=== PATIENT | male | born 1990 | race Caucasian/White ===

== ENCOUNTER 2017-08-18 17:28 | Inpatient (IN) | payer OTHER ==
[~2017-08-18] VITALS: Ht 182.9 cm; Wt 102.1 kg
[2017-08-18] MEDS ORDERED: ONDANSETRON 4 MG/2 ML VIAL IM PRN (19:45)
[2017-08-18] MEDS ORDERED: MAGNESIUM HYDROXIDE 30 ML LIQUID UDC PO PRN (19:45)
[2017-08-18] MEDS ORDERED: diphenhydrAMINE 50 MG CAPSULE PO PRN (19:45)
[2017-08-18] MEDS ORDERED: MAG HYDROX/AL HYDROX/SIMETH 30 ML LIQUID UDC PO PRN (19:45)
[2017-08-18] MEDS ORDERED: LORAZEPAM 2 MG/1 ML VIAL IM PRN (19:45)
[2017-08-18] MEDS ORDERED: LORAZEPAM 1 MG TABLET PO PRN ×2 (19:45)
[2017-08-18] MEDS ORDERED: LOPERAMIDE HCL 2 MG CAPSULE PO PRN ×2 (19:45)
[2017-08-18] MEDS ORDERED: MIRALAX 17 GM POWD.PACK PO PRN (19:45)
[2017-08-18] MEDS ORDERED: CLONIDINE HCL 0.1 MG TABLET PO PRN (19:45)
[2017-08-18] MEDS ORDERED: ACETAMINOPHEN 325 MG TABLET PO PRN (19:45)
[2017-08-18] MEDS ORDERED: BUPRENORPHINE HCL 2 MG TAB.SUBL SL PRN (19:45)
[2017-08-18] MEDS ORDERED: IBUPROFEN 600 MG TABLET PO PRN (19:45)
[2017-08-18] MEDS ORDERED: ONDANSETRON ODT 4 MG TAB.RAPDIS SL PRN (19:45)
[2017-08-18] MEDS ORDERED: DICYCLOMINE HCL 20 MG TABLET PO PRN (19:45)
--- NOTE | 2017-08-18 19:45 | NUR ---
PRE-ADMISSION NOTE Patient is 27-year-old male, alert and orientedx4. Patient is coherent and able to respond to questions appropriately. Patient presents with slight flushing of the face and dilated pupils bilaterally. Patient is ambulatory with a steady gait. Admitting vitals are as follows: BP 121/75, HR 74, SPO2 96% on RA, temperature 97.7 F, RR 16, patient denies pain at this time. Patient denies allergies and reports following a vegetarian diet. Patients height reported at 6 0 and weight 225 lbs. Patient is stable, will be admitted to the 3rd floor; patient educated regarding unit policies and protocols, patient verbalized understanding. Will continue with assessment upon arrival to unit.
[2017-08-18] MEDS ORDERED: NICOTINE 14 MG/24HR PATCH TD PRN (20:00)
[2017-08-18] MEDS ORDERED: NICOTINE POLACRILEX 4 MG GUM-PK OF TEN BC PRN (20:00)
[2017-08-18 20:08] VITALS: BP 121/75
[2017-08-18 20:08] LABS: BASOPHILS % (AUTO) 0.4 % (0.0-2.0); EOSINOPHILS # (AUTO) 0.1 K/uL (0.0-0.7); EOSINOPHILS % (AUTO) 0.7 % (0.0-7.0); HEMATOCRIT 42.3 % (36.7-47.1); HEMOGLOBIN 14.4 g/dL (12.5-16.3); LYMPHOCYTES # (AUTO) 3.5 K/uL (20.0-40.0); LYMPHOCYTES % (AUTO) 39.7 % (20.5-51.5); MEAN CORPUSCULAR HEMOGLOBIN 27.5 uug (23.8-33.4); MEAN CORPUSCULAR HGB CONC 34 g/dL (32.5-36.3); MEAN CORPUSCULAR VOLUME 80.8 fL (73.0-96.2); MONOCYTES # (AUTO) 0.8 K/uL (2.0-10.0); MONOCYTES % (AUTO) 8.6 % (0.0-11.0); NEUTROPHILS # (AUTO) 4.5 K/uL (1.8-8.9); NEUTROPHILS % (AUTO) 50.6 % (38.5-71.5); PLATELET COUNT (AUTO) 225 K/uL (152-348); RED BLOOD CELL COUNT(AUTO) 5.24 MIL/uL (4.06-5.63); WHITE BLOOD COUNT (AUTO) 8.9 K/uL (3.6-10.2)
[2017-08-18 20:15] LABS: ALANINE AMINOTRANSFERASE 33 U/L (16-63); ALKALINE PHOSPHATASE 61 U/L (50-136); ASPARTATE AMINOTRANSFERASE 22 U/L (15-37); BILIRUBIN,TOTAL 0.3 mg/dL (0.2-1.0); CARBON DIOXIDE 31 mmol/L (21-32); CHLORIDE 105 mmol/L (98-107); CREATININE 1.2 mg/dL (0.6-1.3); ETHANOL < 3 MG/DL (0-0); GLUCOSE 116 mg/dL (74-106); MAGNESIUM 1.6 mg/dL (1.8-2.4); POTASSIUM 4.3 mmol/L (3.5-5.1); TOTAL PROTEIN, SERUM 8.2 g/dL (6.4-8.2); UREA NITROGEN, BLOOD 8 mg/dL (7-18)
--- NOTE | 2017-08-18 20:20 | NUR ---
ADMISSION NOTE Patient is a 27-year-old male admitted on 08/18/17 for Heroin and Cocaine dependence, as well as alcohol and fentanyl. Patient has NKA and denies history of seizures. Patient follows a vegetarian diet. Upon admission, patient has a CIWA score of 7 and COWS score of 5. Patients vital signs as follows: BP 121/75, HR 74, SPO2 96% on RA, temperature 97.7 F, RR 16, patient denies pain at this time. Patient reports he cannot recall specific details of previous treatments at this time, only verbalizing that he has been in treatment 4 times. Height reported at 6 0 and weight 225 lbs. Patient reports he does not have PCP, smokes 0.5-1 pack daily, and denies being hospitalized in the last 30 days. Substance Abuse History: 1. Heroin 0.5gram daily, last intake of 0.5gram on 08/18/17. At this rate for 4 years. 2. Alcohol 750mL every other day, last intake of 750mL whiskey on 08/18/17. 3. Cocaine 0.5gram monthly, last intake of 0.5gram on 08/12/17. At this rate for 8 years. 4. Fentanyl 0.5gram daily, last known intake of 0.5gram January 2017. At this rate for 1 year. 5. Marijuana 1 joint every other month, last intake of 1 joint July 2017. At this rate for unknown period of years. Patients longest sobriety period for 18 months when he was [id number]. Patient reports he has been in treatment four times but cannot recall specific dates/locations at this time. Patient reports that his brother from Heroin overdose this morning. Patient reports that an aunt on his mothers side also has heroin dependence. PMHx: Anxiety, depression, Bipolar, Hepatitis C, occasional tinnitus, history of UTI, and fractures of left pinky, left middle finger, and left hand. Patient did not bring any home meds, but reports taking Wellbutrin, Abilify, and gabapentin. Medications reconciled. Upon assessment, patients skin is WNL and intact. Patient is mildly intoxicated, presents with mild anxiety, skin is slightly flushed. Patients respirations are even and unlabored. Patient denies SOB and chest pain, reports mild nausea but denies vomiting and/or diarrhea. Patients bowel sounds active x4 quadrants, abdomen soft, no redness or distention noted. Patient denies SI/HI. Educational information provided and left at bedside. Patient is on fall precautions, safety measures in place, bed in low position, side rails up x2, call light within reach. Will continue to monitor.
[2017-08-18] MEDS ORDERED: LORAZEPAM 1 MG TABLET PO ONE (21:00)
[2017-08-18] MEDS ORDERED: MAGNESIUM OXIDE 400 MG TABLET PO ONE (21:00)
[2017-08-18] MEDS: GABAPENTIN 400 MG CAPSULE PO SCH (22:31)
[2017-08-18] MEDS ORDERED: MAGNESIUM OXIDE 400 MG TABLET ONE (22:38)
[2017-08-18] MEDS ORDERED: LORAZEPAM 1 MG TABLET ONE (22:57)
[2017-08-18 23:50] LABS: *AMPHETAMINE, URINE NEGATIVE (NEGATIVE); *BARBITURATE, URINE NEGATIVE (NEGATIVE); *CANNABINOID, URINE POSITIVE (NEGATIVE); *COCCAINE, URINE NEGATIVE (NEGATIVE); *OPIATE, URINE POSITIVE (NEGATIVE); *PHENCYCLIDINE SCREEN,URINE NEGATIVE (NEGATIVE)
[2017-08-19] VITALS: BP 88/40
--- NOTE | 2017-08-19 | NUR ---
COWS AND CIWA DEFERRED Midnight COWS and CIWA deferred due to patient being asleep; to be assessed when patient is awake per protocol. Patient's respirations are even and unlabored, no signs of distress noted at this time. Bed in low position, side rails up x2, call light within reach. Will continue to monitor.
[2017-08-19] MEDS ORDERED: BUPR300T52 PO (00:14)
[2017-08-19] MEDS ORDERED: ARIP15TA3 PO (00:14)
[2017-08-19] MEDS ORDERED: GABA800T2 PO (00:14)
--- NOTE | 2017-08-19 04:00 | NUR ---
COWS AND CIWA DEFERRED COWS and CIWA deferred due to patient being asleep; to assess when patient is awake per protocol. Patient's respirations are even and unlabored, no distress noted at this time. Bed in low position, side rails up x2, call light within reach. Will continue to monitor.
[2017-08-19 04:04] VITALS: BP 82/49
--- NOTE | 2017-08-19 07:22 | NUR ---
END OF SHIFT Patient is a 27-year-old male admitted on 08/18/17 for Heroin and Cocaine dependence, as well as alcohol and fentanyl. Patient is FULL code, has NKA and denies history of seizures. Patient follows a vegetarian diet. Last CIWA score of 7 and COWS score of 5. No taper has been ordered yet. Patient slept total of 7.5 hours, intake of 1300mL, voided x1, stool x0. No PRNs were given. Patient is on fall precaution, safety measures in place. Bed in low position, side rails up x2, call light within reach. Will endorse to day shift.
--- NOTE | 2017-08-19 07:23 | NUR ---
Start of Shift notes: Received patient in his room. Alert and verbally responsive. Oriented x 4. Able to make her needs known. Respirations even and unlabored. No SOB noted. Skin warm and dry to touch. Abdomen soft and non-distended. BS (+) in all 4 quadrants. No complains of N/V/D or constipation noted. Bladder non-distended. Voids independently. Ambulatory ad theo with steady gait. Patient is a 27 year old male admitted for opiate/BZO and cocaine dependence who was placed on PRNs at this time. Has past medical hx of anxiety, depression, bipolar disorder, Hep C, history of UTI, occasional tinnitus, hx of left pinky fracture, left middle finger fracture and left hand fracture. On fall and seizure precautions. FULL CODE. Regular diet. On fall and seizure precautions. Educated patient on his current plan of care for the day and his medication regimen. Encouraged oral fluid intake and encouraged group participation to learn new skills to prevent relapse. Will continue to monitor.
[2017-08-19 08:00] VITALS: BP 122/50
[2017-08-19] MEDS ORDERED: TUBERCULIN,PURIF.PROT.DERIV. 5 TU/0.1 ML TEST ID ONE (09:00)
[2017-08-19] MEDS: GABAPENTIN 400 MG CAPSULE PO SCH ×3 (09:18→20:39)
[2017-08-19] MEDS: MULTIVITAMINS,THERAPEUTIC TABLET PO SCH (09:18)
[2017-08-19] MEDS: METHOCARBAMOL 750 MG TABLET PO PRN (09:18)
--- NOTE | 2017-08-19 09:18 | NUR ---
Ativan 1 mg/Subutex 4mg SL/Robaxin 750 mg PO given: COWS 12/CIWA 9, patient presented with anxiety, yawning, irritable, restless legs, chills, hot flashes, myalgia, pupil dilation, gross tremors, facial flushing and sweats. Verbalizes 6/10 generalized pain. Medicated patient with Ativan 1 mg for CIWA 9, Subutex 4mg SL for COWS 12, and Robaxin 750 mg PO for 04/17. Will monitor for effectiveness.
--- NOTE | 2017-08-19 09:48 | NUR ---
Re-assessment: Per patient, PRN Subutex was effective in reducing opiate withdrawal symptoms. COWS 8. Less chills, hot flashes, pupils normal, and less restlessness noted.
[2017-08-19] MEDS ORDERED: ARIPIPRAZOLE 2 MG TABLET PO SCH (10:00)
--- NOTE | 2017-08-19 10:18 | NUR ---
Re-assessment: Ativan/Robaxin CIWA 5. Per patient, PRN Ativan and Robaxin has been effective in reducing anxiety, sweats, agitation and myalgia. PL 2.
[2017-08-19 12:00] VITALS: BP 129/91
[2017-08-19] MEDS: buPROPion XL 150 MG TAB.SR.24H PO SCH (12:03)
[2017-08-19] MEDS: ARIPIPRAZOLE 10 MG TABLET PO SCH (12:04)
--- NOTE | 2017-08-19 12:05 | NUR ---
Late med administration: Abilify and Wellbutrin administered late at this time. Med given late per patient's request. Patient was in group when med was available. Notified MD. Per mj CASTANEDA to give at this time.
[2017-08-19] MEDS: BUPRENORPHINE HCL 2 MG TAB.SUBL SL SCH ×3 (12:58→20:39)
[2017-08-19] MEDS: LORAZEPAM 1 MG TABLET PO SCH ×2 (12:58→20:39)
--- NOTE | 2017-08-19 13:00 | NUR ---
5-day Subutex and 5-day Ativan taper initiated: Patient placed on 5-day Subutex and 5-day Ativan. Taper initiated at this time.
--- NOTE | 2017-08-19 13:53 | NUR ---
Therapist met with client in the morning and welcomed him to treatment. Therapist explained the different types of groups to client and encouraged him to attend as soon as he felt ready.
[2017-08-19 16:00] VITALS: BP 131/81
--- NOTE | 2017-08-19 19:02 | NUR ---
End of Shift Notes: Patient's 5-day Ativan and 5-day Subutex taper initiated today at 1300. No adverse reactions noted. Tolerating well. VS monitored closely. No significant abnormalities noted. Withdrawal symptoms were closely monitored. Patient's initial COWS 12/CIWA 9, patient presented with anxiety, agitation, restless legs, chills, hot flashes, sweating myalgia, pupil dilation, and gross tremors. Medicated patient with Robaxin/Ativan 1 mg and Subutex 4 mg SL at 0918 with help. Last COWS /CIWA 3. Per patient, Ativan and Subutex has been effective in reducing patient's withdrawal symptoms. Attempts to participate in group and activities despite his withdrawal symptoms. Noted with episodes of depressed behavior due to loss of his brother. Therapist/Psych MD aware and started patient on Abilify and Wellbutrin. Support and therapeutic communication provided. Compliant with care and treatment. All needs met and attended. Will continue to monitor closely.
--- NOTE | 2017-08-19 19:10 | NUR ---
Start of Shift Patient Received. Patient is in his room sleeping but easily aroused to verbal stimuli. Breathing even and non-labored. Patient is a 27 year old female admitted on 08/18/17 for Opiate and ETOH Dependence under the care of Dr. Hernandez. Patient is currently receiving a 5 day Ativan and 5 day Subutex taper. Patient verbalizes no known allergies, wishes to be full code, following a regular diet, placed on fall precautions, and skin noted intact. Per endorsement, patient is tolerating taper medication well. Last noted COWS 6 and CIWA 3. Patient Attempted to participate in group meetings and activities despite his withdrawal symptoms. He was noted with episodes of depressed behavior due to loss of his brother. Therapists and MDs aware and started. Support and therapeutic communication provided. Patient is compliant with care and treatment. All needs met and attended. Will continue plan of care as ordered.
[2017-08-19 20:34] VITALS: BP 113/62
[2017-08-20 00:18] VITALS: BP 99/51
[2017-08-20 04:36] VITALS: BP 97/52
[2017-08-20 06:06] LABS: HEPATITIS B SURFACE AG Negative (Negative)
--- NOTE | 2017-08-20 07:10 | NUR ---
End of Shift Patient is in bed sleeping. Breathing even and non labored. Patient is a 27 year old male admitted on 08/18/17 for Opiate and ETOH Dependence under the care of Dr. Hernandez. Patient is currently receiving a 5 day Ativan and 5 day Subutex taper. No known allergies, Full Code, Vegetarian Diet, placed on fall precautions, and skin noted intact. Patient is tolerating taper medication well. Last noted COWS 10 and CIWA 5. Patient was noted with episodes of depressed behavior due to loss of his brother. Support and therapeutic communication provided. Patient is compliant with care and treatment. All needs met and attended. Will endorse to continue plan of care as ordered.
--- NOTE | 2017-08-20 07:11 | NUR ---
Start of Shift notes: Received patient in his room. Alert and verbally responsive. Oriented x 4. Able to make her needs known. Respirations even and unlabored. No SOB noted. Skin warm and dry to touch. Abdomen soft and non-distended. BS (+) in all 4 quadrants. No complains of N/V/D or constipation noted. Bladder non-distended. Voids independently. Ambulatory ad theo with steady gait. Patient is a 27 year old male admitted for opiate/BZO and cocaine dependence who was placed on 5-day Subutex and 5-day Ativan taper as ordered. Tolerating taper well. No adverse reactions noted. Prior to admission, patient was using 0.5grams of Heroin, 750cc of ETOH, 0.5grams of cocaine, 0.5grams of fentanyl, and 1 joint of marijuana daily. Has past medical hx of anxiety, depression, bipolar disorder, Hep C, history of UTI, occasional tinnitus, hx of left pinky fracture, left middle finger fracture and left hand fracture. On fall and seizure precautions. FULL CODE. Regular diet. On fall and seizure precautions. Educated patient on his current plan of care for the day and his medication regimen. Encouraged oral fluid intake and encouraged group participation to learn new skills to prevent relapse. Will continue to monitor.
[2017-08-20 08:00] VITALS: BP 113/66
[2017-08-20] MEDS ORDERED: BUPRENORPHINE HCL 2 MG TAB.SUBL SL SCH (09:00)
[2017-08-20] MEDS: GABAPENTIN 400 MG CAPSULE PO SCH ×3 (09:05→20:52)
[2017-08-20] MEDS: LORAZEPAM 1 MG TABLET PO SCH ×4 (09:05→20:52)
[2017-08-20] MEDS: METHOCARBAMOL 750 MG TABLET PO PRN (09:05)
[2017-08-20] MEDS: MULTIVITAMINS,THERAPEUTIC TABLET PO SCH (09:05)
[2017-08-20] MEDS: buPROPion XL 150 MG TAB.SR.24H PO SCH (09:05)
[2017-08-20] MEDS: ARIPIPRAZOLE 10 MG TABLET PO SCH (09:05)
--- NOTE | 2017-08-20 09:05 | NUR ---
Robaxin 750 mg PO given: Patient noted with complain of 6/10 myalgia related to his withdrawal symptoms. Non-pharmacological interventions were provided but ineffective. Medicated patient with Robaxin 750 mg PO as ordered. Will monitor for effectiveness.
--- NOTE | 2017-08-20 09:52 | NUR ---
MD Communication: Reported to Dr. Hernandez that patient's pulse 111 while at rest. Patient denies any complains of chest pain, discomfort, headache, lightheadedness. Per MD, he will come and see the patient and enter in orders.
--- NOTE | 2017-08-20 10:05 | NUR ---
Re-assessment: Robaxin Per patient, PRN Robaxin was highly effective in reducing myalgia. PL 11/17.
--- NOTE | 2017-08-20 10:10 | NUR ---
PMD and Psych MD Communication: Notified Dr. Rascon and Dr. Hernandez that patient is noted with episodes of sedation during the day. Per MD, continue to monitor the patient at this time.
[2017-08-20] MEDS ORDERED: TRAZODONE 50 MG TABLET PO PRN (10:45)
[2017-08-20 12:00] VITALS: BP 110/70
--- NOTE | 2017-08-20 12:10 | NUR ---
Change of Condition/MD Communication: Patient seen laying down in bed with eyes closed. Breathing even and unlabored. Easily arousable. Responsive to verbal and tactile stimuli. Noted with pulse 127, BP 110/70, Temp 100, PL 5/10 due to toothache, and O2 sat at 89-90% via RA. Crackles heard on RLL. Reports episodes of cough and mild congestion. HOB elevated. Immediately notified Dr. Hernandez with orders to administer O2 at 2L via NC and to titrate to keep O2 sat >95%, CXR and labs, and per MD, OK to give scheduled Ativan at this time. Orders noted and carried out.
--- NOTE | 2017-08-20 12:45 | NUR ---
MD Communication: Refusal of Tylenol or Motrin PRN Motrin and Tylenol were offered to the patient to help with his fever however patient refused. Patient states that both medications give him a stomach ache. Education was provided and encouraged patient to eat before taking meds but patient verbalizes "I'd rather not take anything." Dr. Hernandez made aware and to continue to monitor the patient. Cooling measures provided at this time. Encouraged patient to change into loose clothing to help with the fever. Patient complied. Will monitor closely.
[2017-08-20 13:14] LABS: BASOPHILS % (AUTO) 0.2 % (0.0-2.0); EOSINOPHILS % (AUTO) 0.3 % (0.0-7.0); HEMATOCRIT 43.5 % (36.7-47.1); HEMOGLOBIN 14.4 g/dL (12.5-16.3); LYMPHOCYTES # (AUTO) 4.4 K/uL (20.0-40.0); LYMPHOCYTES % (AUTO) 27.7 % (20.5-51.5); MEAN CORPUSCULAR HEMOGLOBIN 27.2 uug (23.8-33.4); MEAN CORPUSCULAR HGB CONC 33 g/dL (32.5-36.3); MEAN CORPUSCULAR VOLUME 81.8 fL (73.0-96.2); MONOCYTES # (AUTO) 1.4 K/uL (2.0-10.0); NEUTROPHILS # (AUTO) 9.9 K/uL (1.8-8.9); NEUTROPHILS % (AUTO) 62.8 % (38.5-71.5); PLATELET COUNT (AUTO) 190 K/uL (152-348); RED BLOOD CELL COUNT(AUTO) 5.31 MIL/uL (4.06-5.63)
[2017-08-20 13:17] LABS: WHITE BLOOD COUNT (AUTO) 15.8 K/uL (3.6-10.2)
--- NOTE | 2017-08-20 13:17 | NUR ---
Ativan 1 mg PO at 1300 not administered: Patient appears sedated. Arousable, but unable to maintain eye contact as he falls asleep. Verbally responsive to verbal and tactile stimuli. Ativan 1 mg PO at 1300 held at this time. Will continue to monitor.
[2017-08-20 13:18] LABS: CREATININE 1.1 mg/dL (0.6-1.3); POTASSIUM 4.5 mmol/L (3.5-5.1)
--- NOTE | 2017-08-20 13:28 | NUR ---
MD Communication: Labs Patient's WBC noted to be 15.8H. Informed MD Hernandez at this time.
--- NOTE | 2017-08-20 13:45 | NUR ---
Re-assessment: Temp Patient's temp rechecked. Temp 99.5 after 1 hour of applying cold packs. Oral fluids encouraged. Dr. Hernandez aware.
[2017-08-20] MEDS: PIPERACILLIN/TAZOBACTAM/D5W 3.375 G in PREMIXED 1 EACH IV SCH ×3 (14:30→22:00)
--- NOTE | 2017-08-20 15:00 | NUR ---
IV insertion: IV access obtained to patient's left hand by charge nurse. Attempted x 2 with good blood return. Flushed adequately per unit's protocol. IV site to left hand patent and intact. Tourniquet released. Education provided to the patient.
[2017-08-20] MEDS: BUPRENORPHINE HCL 2 MG TAB.SUBL SL SCH ×2 (15:53→20:52)
[2017-08-20] MEDS: IV NS 1000 ML 1,000 ML IV SCH ×2 (15:58→22:41)
[2017-08-20 16:00] VITALS: BP 110/77
[2017-08-20] MEDS: VANCOMYCIN IV 1,500 MG in IV DEXTROSE 5% 500 ML IV SCH (16:05)
--- NOTE | 2017-08-20 16:27 | NUR ---
Clinical Pharmacy Note: Vancomycin Pharmacy to Dose Subjective: To start vancomycin in this 27 yo male for indication of empiric Objective: height : 72 '' weight: 225 lb BUN 5 Scr 1.1 Wbc 15.8 temp 98.6 Assessment/Plan Will start vancomycin 1500mg IVPB Q9hrs for expected trough of 15 mcg/ml at steady state. 1st dose was due today at 1600. Will check trough before 4th scheduled dose (not yet ordered). Will monitor renal function and adjust the dose if needed. Will continue to follow
--- NOTE | 2017-08-20 17:29 | NUR ---
Ativan 1 mg PO at 1700 not administered: Patient appears sedated. Arousable, but unable to maintain eye contact as he falls asleep. Verbally responsive to verbal and tactile stimuli. Ativan 1 mg PO at 1700 held at this time. Notified MD. Will continue to monitor.
--- NOTE | 2017-08-20 19:07 | NUR ---
End of Shift Notes: Patient continues to be on 5- day Subutex and 5-day Ativan taper as ordered. No adverse reactions noted. VS monitored closely. Noted with elevated pulse and elevated body temp. Also noted with episodes of desaturation. MD Hernandez aware and orders in place. Initial COWS 11/CIWA 5, patient presented with chills, hot flashes, myalgia, anxiety, tremors and restlessness. Medicated patient with Robaxin at 0905 for myalgia with help after 1 hour. On O2 at 4L/min via NC due to episode of desaturation. Ativan 1 mg at 1300 and 1700 held due to sedation. MD gonsalves. Labs reviewed. Patient noted with WBC 15.8H. Cooling measures provided. IV site to left hand inserted but became infiltrated at 1800. IV removed and cold compress applied immediately. On IV ATB of Vancomycin and Zosyn as ordered for elevated WBC. Per patient, he might have pulled the IV accidentally. Last COWS 4/CIWA 3. Per patient Ativan and Subutex has been effective in relieving his withdrawal symptoms. All needs met and attended. Will continue to monitor.
--- NOTE | 2017-08-20 19:15 | NUR ---
START OF SHIFT Received 27 year old male patient admitted on 08/18/17 for ETOH, Heroin, Fentanyl, Cocaine and Marijuana dependency. Pt is full code with NKA. He follows a vegetarian diet. Pt reports a PMHx of anxiety, depression, bipolar, hepatitis C, history of UTI, and history of left pinky fracture, left middle finger fracture, and left hand fracture. Pt is placed on a 5 day Ativan and 5 day Subutex taper started on 08/19/17 and tolerating well. Per endorsement, with increased temperature of 101, and O2 sat of 85%. MD with orders for blood culture x2, CBC, BMP, sputum culture, GAS, influenza A/B, MRSA screen, and chest X-Ray. Pt currently receiving IV Zosyn and Vancomycin until pending labs are resulted. Pt's 1200 and 1700 dose of Ativan were held d/t sedation. Pt lying in bed with eyes closed but responds to nurses greeting. Pt is alert and oriented x4, breathing is even and unlabored. Safety measures in place. Will continue to monitor.
[2017-08-20 20:00] VITALS: BP 117/76
--- NOTE | 2017-08-20 20:00 | NUR ---
NON ADMINISTERED MEDICATION 1430 dose of Zosyn was non-administered d/t pt's IV was infiltrated.
--- NOTE | 2017-08-20 21:00 | NUR ---
IV INSERTION Pt's left hand IV was infiltrated. 22 gauge IV reinserted to pt's right hand. Pt tolerated well. No s/s of infiltration noted. Will continue to monitor.
[2017-08-21] VITALS (7 sets, daily range): BP systolic 105–130; BP diastolic 50–89
--- NOTE | 2017-08-21 | NUR ---
COWS/CIWA DEFERRED COWS and CIWA deferred d/t pt lying in bed with eyes closed noted to be asleep. Respirations 16, breathing is even and unlabored. Safety measures in place. Will monitor.
[2017-08-21] MEDS: VANCOMYCIN IV 1,500 MG in IV DEXTROSE 5% 500 ML IV SCH ×3 (01:50→19:00)
[2017-08-21] MEDS: IV NS 1000 ML 1,000 ML IV SCH ×3 (06:36→23:30)
[2017-08-21] MEDS: PIPERACILLIN/TAZOBACTAM/D5W 3.375 G in PREMIXED 1 EACH IV SCH ×3 (06:37→23:16)
--- NOTE | 2017-08-21 07:18 | NUR ---
END OF SHIFT Pt is a 27 year old male patient admitted on 08/18/17 for ETOH, Heroin, Fentanyl, Cocaine and Marijuana dependency. Pt is full code with NKA. He follows a vegetarian diet. Pt reports a PMHx of anxiety, depression, bipolar, hepatitis C, hisotry of UTI, and history of left pinky fracture, left middle finger fracture, and left hand fracture. Pt continues on a 5 day Ativan and 5 day Subutex taper started on 08/19/17 and tolerating well. Pt with 22 gauge IV on right hand, patent and flushing well. No s/s of infiltration. He is receiving fluids and IV Zosyn Q8hrs and Vancomycin Q9hrs. Pt is tolerating well. He did not receive or request PRN medications. Pt continues with 2L of O2 via NC to keep O2 sat above 95%. He did not present with increased temperature during shift. Last temp at 0400 was 98.5. Pt remains alert and oriented x4, productive cough noted, breathing even. Safety measures in place. Endorsed to oncoming shift.
--- NOTE | 2017-08-21 07:25 | NUR ---
Start of shift note SBAR report rcv'd. Pt was admitted for opiate, ETOH, cocine and marijuana abuse. Pt is a full code on a regular diet, and denies any allergies. Pt has a PMhx of anxiety, depression, bipolar d/o, hepatitis C, history of a UTI, tinnitus, and multiple fractures. Pt is IV antibiotics for an infection. Pt is on a 5 day subutex and 5 day ativan taper. IVF infusing without incident. Will continue to monitor pt. All needs addressed at this time.
[2017-08-21 08:16] LABS: CREATININE 1.2 mg/dL (0.6-1.3); MAGNESIUM 1.8 mg/dL (1.8-2.4); POTASSIUM 3.9 mmol/L (3.5-5.1)
[2017-08-21 08:19] LABS: BASOPHILS % (AUTO) 0.2 % (0.0-2.0); EOSINOPHILS # (AUTO) 0.1 K/uL (0.0-0.7); EOSINOPHILS % (AUTO) 0.7 % (0.0-7.0); HEMATOCRIT 38.5 % (40-50); HEMOGLOBIN 12.9 G/DL (14.0-18.0); LYMPHOCYTES # (AUTO) 2.9 K/UL (0.8-4.8); LYMPHOCYTES % (AUTO) 27.9 % (20.5-51.5); MEAN CORPUSCULAR HEMOGLOBIN 27.2 UUG (27.0-31.0); MEAN CORPUSCULAR HGB CONC 33 g/dL (32.0-37.0); MEAN CORPUSCULAR VOLUME 81.3 FL (82.0-92.0); MONOCYTES # (AUTO) 0.9 K/UL (0.1-1.30); MONOCYTES % (AUTO) 8.8 % (0.0-11.0); NEUTROPHILS # (AUTO) 6.5 K/UL (1.8-8.9); NEUTROPHILS % (AUTO) 62.4 % (38.5-71.5); PLATELET COUNT (AUTO) 197 K/UL (150-450); RED BLOOD CELL COUNT(AUTO) 4.74 MIL/UL (4.7-6.1)
[2017-08-21 08:21] LABS: WHITE BLOOD COUNT (AUTO) 10.4 K/UL (4.0-11.2)
[2017-08-21] MEDS: ARIPIPRAZOLE 10 MG TABLET PO SCH (09:10)
[2017-08-21] MEDS: BUPRENORPHINE HCL 2 MG TAB.SUBL SL SCH ×3 (09:10→20:34)
[2017-08-21] MEDS: buPROPion XL 150 MG TAB.SR.24H PO SCH (09:10)
[2017-08-21] MEDS: MULTIVITAMINS,THERAPEUTIC TABLET PO SCH (09:10)
[2017-08-21] MEDS: LORAZEPAM 1 MG TABLET PO SCH ×3 (09:10→20:34)
[2017-08-21] MEDS: GABAPENTIN 400 MG CAPSULE PO SCH (09:10)
--- NOTE | 2017-08-21 12:00 | NUR ---
COWS/CIWA deferred Pt is sleeping soundly. COWS/CIWA deferred.
[2017-08-21] MEDS ORDERED: IV NS 1000 ML 1,000 ML IV ONE (13:00)
[2017-08-21] MEDS: GABAPENTIN 300 MG CAPSULE PO SCH ×2 (14:20→20:33)
--- NOTE | 2017-08-21 14:58 | NUR ---
Clinical Pharmacy Note: Vancomycin Pharmacy to Dose Subjective: To continue vancomycin in this 27 yo male for indication of empiric Objective: height : 72 '' weight: 225 lb BUN 5 Scr 1.2 Wbc 10.4 temp 98.5 Assessment/Plan Will continue vancomycin 1500mg IVPB Q9hrs for expected trough of 15 mcg/ml at steady state. 3rd dose was today at 1000. Will check trough before 4th scheduled dose (due tonight at 1830). RNs endorsed to hold dose if trough >20. Will check level tomorrow and adjust as needed. Will monitor renal function and adjust the dose if needed. Will continue to follow
[2017-08-21] MEDS ORDERED: MAGNESIUM OXIDE 400 MG TABLET PO ONE (15:00)
--- NOTE | 2017-08-21 16:30 | NUR ---
MD communication Pt noted to have a HR of 131, Dr Hernandez notified, Dr Hernandez to place orders for EKG. Pt has no further complaints. Will continue to monitor pt.
--- NOTE | 2017-08-21 18:51 | NUR ---
End of shift note Pt was admitted for opiate, ETOH, cocaine and marijuana abuse. Pt has a PMhx of anxiety, depression, bipolar d/o, hepatitis C, history of a UTI, tinnitus, and multiple fractures . Pt is a full code on a regular diet, and denies any allergies. Pt is IV antibiotics for an infection, all culture results and microbiology results at this time are negative. Pt is on a 5 day subutex and 5 day ativan taper and tolerating well. Pt has a COWS of 8 and CIWA of 3 at 1600. Pt had an IV bolus of NS during the shift for his tachycardia. IVF fluids at 125ml/hr to R hand. Dr Hernandez ordered an EKG, pending results. Pt ambulated several times during the shift, pt states that he is comfortable at this time. Will endorse SBAR to oncoming nurse.
--- NOTE | 2017-08-21 19:15 | NUR ---
START OF SHIFT Received 27 year old male patient admitted on 08/18/17 for ETOH, Heroin, Fentanyl, Cocaine and Marijuana dependency. Pt is full code with NKA. He follows a vegetarian diet. Pt reports a PMHx of anxiety, depression, bipolar, hepatitis C, history of UTI, and history of left pinky fracture, left middle finger fracture, and left hand fracture. Pt is currently receiving a 5 day Ativan and 5 day Subutex taper started on 08/19/17 and tolerating well. Per endorsement, he did not receive or request PRN medications. He is scheduled to have EKG for increased HR. Pt's lab results for rapid influenza was negative, strep was negative, pending results for sputum culture and MRSA nares. Pt is alert and oriented x4, breathing is even and unlabored. Safety measures in place. Will continue to monitor.
[2017-08-21] MEDS: LACTOBACILLUS RHAMNOSUS GG 1 EACH CAPSULE PO SCH (20:33)
--- NOTE | 2017-08-21 23:00 | NUR ---
IV REINSERTION Pt's left hand IV gauge 22 noted to be dislodged. Pt complaining of pain at insertion site. 22 gauge IV was reinserted on left forearm. Pt tolerated well. No s/s of infiltration noted, patent and flushing well. Will monitor.
[2017-08-22] VITALS: BP 123/67
--- NOTE | 2017-08-22 | NUR ---
COWS/CIWA DEFERRED Pt lying in bed with eyes closed noted to be asleep. Respirations 16, breathing is even and unlabored. Safety measures in place. Will monitor.
[2017-08-22 04:00] VITALS: BP 93/51
--- NOTE | 2017-08-22 04:00 | NUR ---
COWS/CIWA DEFERRED Pt lying in bed with eyes closed noted to be asleep. Respirations 16, breathing is even and unlabored. Safety measures in place. Will monitor.
[2017-08-22] MEDS: VANCOMYCIN IV 1,500 MG in IV DEXTROSE 5% 500 ML IV SCH ×2 (04:04→15:43)
[2017-08-22] MEDS: IV NS 1000 ML 1,000 ML IV SCH ×3 (06:30→22:51)
--- NOTE | 2017-08-22 07:12 | NUR ---
END OF SHIFT Pt is a 27 year old male patient admitted on 08/18/17 for ETOH, Heroin, Fentanyl, Cocaine and Marijuana dependency. Pt is full code with NKA. He follows a vegetarian diet. Pt reports a PMHx of anxiety, depression, bipolar, hepatitis C, history of UTI, and history of left pinky fracture, left middle finger fracture, and left hand fracture. Pt is currently receiving a 5 day Ativan and 5 day Subutex taper started on 08/19/17 and tolerating well. He did not receive or request PRN medications. He received EKG at 2300. His IV was reinserted to left forearm 22 gauge, patent and flushing well. He remains of IV antibiotics of Zosyn and Vancomycin. He slept a total of 7hrs, Intake: 1146mL, Void: x2, BM:0, COWS: 9, CIWA:4. Pt remain s alert and oriented x4, breathing is even and unlabored. Safety measures in place. Endorsed to oncoming shift.
--- NOTE | 2017-08-22 07:25 | NUR ---
Start of shift note SBAR report rcv'd. Pt was admitted for opiate, ETOH, cocaine and marijuana abuse. Pt has a PMhx of anxiety, depression, bipolar d/o, hepatitis C, history of a UTI, tinnitus, and multiple fractures . Pt is a full code on a regular diet, and denies any allergies. Pt is IV antibiotics for an infection, all culture results and microbiology results at this time are negative, with some results still pending. Pt is on a 5 day subutex and 5 day ativan taper and tolerating well. Pt has IV zosyn infusing at this time to left forearm. Will continue to monitor pt. All needs addressed at this time. Pt is requesting to sleep at this time.
[2017-08-22] MEDS: PIPERACILLIN/TAZOBACTAM/D5W 3.375 G in PREMIXED 1 EACH IV SCH ×3 (07:29→21:32)
[2017-08-22 07:40] LABS: BASOPHILS % (AUTO) 0.4 % (0.0-2.0); EOSINOPHILS # (AUTO) 0.2 K/uL (0.0-0.7); HEMOGLOBIN 12.7 G/DL (14.0-18.0); LYMPHOCYTES # (AUTO) 3.4 K/UL (0.8-4.8); LYMPHOCYTES % (AUTO) 40.3 % (20.5-51.5); MEAN CORPUSCULAR HGB CONC 33 g/dL (32.0-37.0); MEAN CORPUSCULAR VOLUME 82.9 FL (82.0-92.0); MONOCYTES # (AUTO) 0.9 K/UL (0.1-1.30); MONOCYTES % (AUTO) 10.8 % (0.0-11.0); NEUTROPHILS # (AUTO) 3.9 K/UL (1.8-8.9); NEUTROPHILS % (AUTO) 46.5 % (38.5-71.5); PLATELET COUNT (AUTO) 174 K/UL (150-450); WHITE BLOOD COUNT (AUTO) 8.4 K/UL (4.0-11.2)
[2017-08-22 07:44] LABS: MAGNESIUM 2.2 mg/dL (1.8-2.4); POTASSIUM 3.6 mmol/L (3.5-5.1)
[2017-08-22 08:00] VITALS: BP 112/81
[2017-08-22] MEDS: GABAPENTIN 300 MG CAPSULE PO SCH ×4 (10:17→21:29)
[2017-08-22] MEDS: MULTIVITAMINS,THERAPEUTIC TABLET PO SCH (10:17)
[2017-08-22] MEDS: ARIPIPRAZOLE 10 MG TABLET PO SCH (10:17)
[2017-08-22] MEDS: BUPRENORPHINE HCL 2 MG TAB.SUBL SL SCH ×2 (10:17→21:39)
[2017-08-22] MEDS: LACTOBACILLUS RHAMNOSUS GG 1 EACH CAPSULE PO SCH ×2 (10:17→21:29)
[2017-08-22] MEDS: buPROPion XL 150 MG TAB.SR.24H PO SCH (10:17)
[2017-08-22] MEDS: LORAZEPAM 1 MG TABLET PO SCH ×2 (10:18→21:29)
[2017-08-22 12:00] VITALS: BP 142/85
[2017-08-22] MEDS ORDERED: IV NS 1000 ML 1,000 ML IV ONE (15:00)
--- NOTE | 2017-08-22 15:00 | NUR ---
Medication held Pt is sleeping soundly, gabapentin held.
--- NOTE | 2017-08-22 15:20 | NUR ---
Clinical Pharmacy Note: Vancomycin Pharmacy to Dose Subjective: To continue vancomycin in this 27 yo male for indication of empiric Objective: height : 72 '' weight: 225 lb BUN 6 Scr 1.0 Wbc 8.4 temp 98.0 Trough: 8.9 08/21 at 2030 Trough: 17.0 today at 1255 Assessment/Plan As yesterday's trough was taken late, rescheduled trough for today before 1300 dose. Based on trough and pt weight, may not be fully distributed/may be higher. Rescheduled for 1500 q10hrs for new expected trough 15.1. First dose today at 1500. Will order trough before 4th scheduled dose (not ordered yet). Will monitor renal function and dose per level if unstable. will follow
--- NOTE | 2017-08-22 15:44 | NUR ---
Vancomycin 500cc IVPB started via pump right forearm @ 250cc/hr.
[2017-08-22 16:00] VITALS: BP 122/67
[2017-08-22] MEDS: METHOCARBAMOL 750 MG TABLET PO PRN (16:51)
--- NOTE | 2017-08-22 16:54 | NUR ---
PRN Administration Pt c/o headache 06/17, muscle aches 05/17 and a nausea. Administered PRN tylenol, robaxin and zofran per MD order. Will continue to monitor pt.
--- NOTE | 2017-08-22 17:24 | NUR ---
Reassessment Pt states that his nausea has improved. Will continue to monitor pt.
--- NOTE | 2017-08-22 17:54 | NUR ---
Reassessment Pt states that his headache and body aches have improved to a pain level of 3/10. Will continue to monitor pt. All needs addressed at this time
--- NOTE | 2017-08-22 19:00 | NUR ---
End of shift note Pt was admitted for opiate, ETOH, cocaine and marijuana abuse. Pt has a PMhx of anxiety, depression, bipolar d/o, hepatitis C, history of a UTI, tinnitus, and multiple fractures . Pt is a full code on a regular diet, and denies any allergies. Pt is IV antibiotics for an infection, all culture results and microbiology results at this time are negative, with some results still pending and preliminary at this time. Pt is on a 5 day subutex and 5 day ativan taper and tolerating well. Pt has NS infusing at a bolus rate per Dr Hernandez. Pt is tolerating well. Pt had a vanco trough drawn and it is WNL. Pharmacy is dosing vanco. At 1654 pt woke up from his nap and stated that he had a headache, body aches and nausea. Pt given PRN medications with relief. Pt had a COWS of 9 and CIWA of 8 at 1600. Pt is currently ambulating around the unit, pt has no further complaints. Will endorse SBAR to oncoming nurse.
--- NOTE | 2017-08-22 19:15 | NUR ---
START OF SHIFT Received 27 year old male patient admitted on 08/18/17 for ETOH, Heroin, Fentanyl, Cocaine and Marijuana dependency. Pt is full code with NKA. He follows a vegetarian diet. Pt reports a PMHx of anxiety, depression, bipolar, hepatitis C, history of UTI, and history of left pinky fracture, left middle finger fracture, and left hand fracture. Pt is currently receiving a modified Ativan and Subutex taper started on 08/20/17 and tolerating well. Per endorsement, he received PRN Zofran, Robaxin, and Tylenol. He continues on IV antibiotics and fluids. Pt's IV on left forearm is intact, patent and flushing well. Pt is alert and oriented x4, breathing is even and unlabored. Safety measures in place. Will continue to monitor.
[2017-08-22 20:00] VITALS: BP 138/78
[2017-08-23] VITALS: BP 123/70
[2017-08-23] MEDS: VANCOMYCIN IV 1,500 MG in IV DEXTROSE 5% 500 ML IV SCH ×2 (01:08→12:05)
[2017-08-23 04:00] VITALS: BP 128/80
[2017-08-23] MEDS: PIPERACILLIN/TAZOBACTAM/D5W 3.375 G in PREMIXED 1 EACH IV SCH ×2 (06:03→14:26)
[2017-08-23] MEDS: IV NS 1000 ML 1,000 ML IV SCH ×2 (06:41→15:28)
--- NOTE | 2017-08-23 07:10 | NUR ---
END OF SHIFT Pt is a 27 year old male patient admitted on 08/18/17 for ETOH, Heroin, Fentanyl, Cocaine and Marijuana dependency. Pt is full code with NKA. Pt reports a PMHx of anxiety, depression, bipolar, hepatitis C, history of UTI, and history of left pinky fracture, left middle finger fracture, and left hand fracture. He continues on a modified Ativan and Subutex taper started on 08/20/17. Today is the last day of his taper, pt is tolerating well. He did not receive or request PRN medications. He continues on IV antibiotics and fluids. Pt's 22 gauge IV on left forearm is intact, patent and flushing well. He slept a total of 7hrs, Intake: 900mL, Void: x2, BM:0, COWS: 9, CIWA:5. Pt remains alert and oriented x4, breathing is even and unlabored. Safety measures in place. Endorsed to oncoming shift.
--- NOTE | 2017-08-23 07:18 | NUR ---
Start Of Shift Report received Pt is a 27 year old male patient admitted on 08/18/17 for ETOH, Heroin, Fentanyl, Cocaine and Marijuana dependency. Pt is full code regular diet, on fall and seizure precautions with NKA. Pt reports a PMHx of anxiety, depression, bipolar, hepatitis C, history of UTI, and history of left pinky fracture, left middle finger fracture, and left hand fracture. He continues on a modified Ativan and Subutex taper started on 08/20/17. Today is the last day of his taper, pt is tolerating well. He did not receive or request PRN medications. He continues on IV antibiotics and fluids. Pt's 22 gauge IV on left forearm is intact, patent and flushing well. He slept a total of 7hrs, all safety measures in place will continue to monitor.
[2017-08-23 08:00] VITALS: BP 118/69
[2017-08-23] MEDS: ARIPIPRAZOLE 10 MG TABLET PO SCH (08:47)
[2017-08-23] MEDS: LACTOBACILLUS RHAMNOSUS GG 1 EACH CAPSULE PO SCH ×2 (08:48→20:09)
[2017-08-23] MEDS: MULTIVITAMINS,THERAPEUTIC TABLET PO SCH (08:48)
[2017-08-23] MEDS: GABAPENTIN 300 MG CAPSULE PO SCH ×3 (08:48→20:09)
[2017-08-23] MEDS: buPROPion XL 150 MG TAB.SR.24H PO SCH (08:48)
[2017-08-23] MEDS ORDERED: LORAZEPAM 1 MG TABLET PO SCH (09:00)
[2017-08-23] MEDS ORDERED: BUPRENORPHINE HCL 2 MG TAB.SUBL SL SCH (09:00)
--- NOTE | 2017-08-23 10:59 | NUR ---
nurys Pharmacy Note: Vancomycin Pharmacy to Dose Subjective: To continue vancomycin in this 27 yo male for indication of empiric Objective: height : 72 '' weight: 225 lb TEMP 98.7 Assessment/Plan Continue vancomycin 1500mg q10h estimate trough 15. Will order trough prior to tomorrow morning dose
[2017-08-23 12:00] VITALS: BP 114/75
[2017-08-23] MEDS: DICYCLOMINE HCL 20 MG TABLET PO SCH ×2 (15:28→20:09)
[2017-08-23] MEDS ORDERED: LEVO750T21 PO (15:49)
[2017-08-23] MEDS ORDERED: LACT1CAP57 PO (15:49)
[2017-08-23] MEDS ORDERED: ARIP10TA9 PO (15:49)
[2017-08-23] MEDS ORDERED: GABA-534 PO (15:49)
[2017-08-23] MEDS ORDERED: TRAZ-144 PO (15:49)
[2017-08-23] MEDS ORDERED: DICY20TA28 PO (15:49)
[2017-08-23] MEDS ORDERED: METH-406 PO (15:49)
[2017-08-23] MEDS ORDERED: BUPR-96 PO (15:49)
[2017-08-23] MEDS ORDERED: NICO4GUM38 BC (15:49)
[2017-08-23 16:00] VITALS: BP 129/79
--- NOTE | 2017-08-23 19:30 | NUR ---
End Of Shift Pt is a 27 year old male patient admitted on 08/18/17 for ETOH, Heroin, Fentanyl, Cocaine and Marijuana dependency. Pt is full code regular diet, on fall and seizure precautions with NKA. Pts IV was accidently removed, New IV 22G started On right hand. Upon completion of last antibiotic got an order from pharmacy to D/C IV, endorsed to night shift supervisor nurse. VS monitored closely q 4 hours. Pt is to be discharged tomorrow, all paperwork completed for tomorrows discharge. Withdrawal symptoms were closely monitored. Initial COWS 6 CIWA 6. Patient encouraged adequate PO fluid intake as tolerated. Patient presented with tremors and anxiety during the day. Last COWS 4 CIWA 4. Per patient, Subutex and Ativan have been helping him with his withdrawal symptoms. Pt ate all of his meals. No PRN medications given during the day. Patient encouraged to attend group therapies/sessions to learn new coping skills to recent relapse, patient denies SI/HI. Participated in group and therapy sessions. All needs met and attended
[2017-08-23 20:00] VITALS: BP 137/80
--- NOTE | 2017-08-23 20:00 | NUR ---
Start of Shift Pt is a 27 year old male admitted for ETOH, Heroin, Fentanyl, Cocaine and Marijuana dependency, placed on 5 day Ativan and 5 day Subutex taper completed. Pt reported using Heroin 0.5g/daily, Alcohol 750ml/every other day, Cocaine 0.5g monthly, Fentanyl 0.5g/daily and Marijuana 1 joint every other month. PMH: anxiety, depression, bipolar, Hepatitis C, hx of UTI, occasional tinnitus, hx of left pinky fracture, left middle finger fracture and left hand fracture. NKA, vegetarian diet, fall/seizure precautions and full code. Antibiotic tx completed, IV 22g on right hand removed, site cleaned and bandaged. Upon assessment, pt reported feeling anxious due to discharge scheduled tomorrow. Pt reports mild body aches, skin is flushed/clammy, respirations even/unlabored, denies SOB/chest pain, denies n/v/d, medications due, safety measures in place, call light within reach, side rails up x2, bed locked and in low position. Will continue to monitor.
[2017-08-24] VITALS: BP 142/90
--- NOTE | 2017-08-24 01:54 | NUR ---
PRN Administration Pt is anxious, is in emotional distress, skin flushed/clammy. Clonidine 0.1mg PRN administered. Safety measures in place, will continue to monitor.
--- NOTE | 2017-08-24 02:54 | NUR ---
PRN Reassessment Upon reassessment, pt is resting with eyes closed, respirations even/unlabored Safety measures in place. Will continue to monitor.
[2017-08-24 04:00] VITALS: BP 121/80
--- NOTE | 2017-08-24 04:00 | NUR ---
Vital Signs & COWS/CIWA Deferred BP 121/80, pulse 99, resp 16, Spo2 99% room air, temp 98, no pain 0/10 COWS/CIWA deferred due to pt sleeping, to assess while pt is awake as ordered Safety measures in place, will continue to monitor.
--- NOTE | 2017-08-24 07:00 | NUR ---
End of Shift Pt is a 27 year old male admitted for ETOH, Heroin, Fentanyl, Cocaine and Marijuana dependency, placed on 5 day Ativan and 5 day Subutex taper completed. Pt reported using Heroin 0.5g/daily, Alcohol 750ml/every other day, Cocaine 0.5g monthly, Fentanyl 0.5g/daily and Marijuana 1 joint every other month. PMH: anxiety, depression, bipolar, Hepatitis C, hx of UTI, occasional tinnitus, hx of left pinky fracture, left middle finger fracture and left hand fracture. NKA, vegetarian diet, fall/seizure precautions and full code. Antibiotic tx completed, IV 22g on right hand removed, site cleaned and bandaged. During shift, pt reported feeling anxious. Pt also reported mild body aches, skin flushed/clammy medications administered, CIWA 3 and COWS 3. No PRN medications administered during shift. Pt slept for 4 hours, intake of 1350 ml PO, voids x3 and stool x0 . Safety measures in place, call light within reach, side rails up x2, bed locked and in low position. Endorsed to day shift nurse.
--- NOTE | 2017-08-24 07:01 | NUR ---
Start of Shift notes: Received patient in his room. Alert and verbally responsive. Oriented x 4. Able to make her needs known. Respirations even and unlabored. No SOB noted. Skin warm and dry to touch. Abdomen soft and non-distended. BS (+) in all 4 quadrants. No complains of N/V/D or constipation noted. Bladder non-distended. Voids independently. Ambulatory ad theo with steady gait. Patient is a 27 year old male admitted for opiate/BZO and cocaine dependence who was placed on 5-day Subutex and 5-day Ativan taper as ordered. Tolerating taper well. No adverse reactions noted. Patient completed taper and will be discharging today. Prior to admission, patient was using 0.5grams of Heroin, 750cc of ETOH, 0.5grams of cocaine, 0.5grams of fentanyl, and 1 joint of marijuana daily. Has past medical hx of anxiety, depression, bipolar disorder, Hep C, history of UTI, occasional tinnitus, hx of left pinky fracture, left middle finger fracture and left hand fracture. On fall and seizure precautions. FULL CODE. Regular diet. On fall and seizure precautions. Educated patient on the discharge process. Patient verbalized good understanding. Will continue to monitor.
[2017-08-24 08:00] VITALS: BP 119/78
[2017-08-24] MEDS: buPROPion XL 150 MG TAB.SR.24H PO SCH (08:33)
[2017-08-24] MEDS: MULTIVITAMINS,THERAPEUTIC TABLET PO SCH (08:34)
[2017-08-24] MEDS: GABAPENTIN 300 MG CAPSULE PO SCH (08:34)
[2017-08-24] MEDS: ARIPIPRAZOLE 10 MG TABLET PO SCH (08:34)
[2017-08-24] MEDS: DICYCLOMINE HCL 20 MG TABLET PO SCH (08:34)
[2017-08-24] MEDS: LACTOBACILLUS RHAMNOSUS GG 1 EACH CAPSULE PO SCH (08:34)
[2017-08-24] MEDS ORDERED: LEVOFLOXACIN 750 MG TABLET PO SCH (09:00)
--- NOTE | 2017-08-24 09:07 | NUR ---
Discharged: Patient discharged at this time in stable condition. COWS 2/CIWA 1 due to anxiety. VS stable for the patient. States "I feel so much better, thank you." All discharge instructions were explained to the patient. Patient verbalized good understanding of all teachings. All meds were given. Returned all clothings, and valuables. No meds were brought by the patient. Picked up by [facility] to be transported to [facility].
== END 2017-08-24 10:30 | DRG 895 ==
LOC: SRC 19:01
PROVIDERS: ADMIT Internal Medicine; ATTEND Internal Medicine
DX: F10.230 Alcohol dependence with withdrawal, uncomplicated (principal); E87.3 Alkalosis; F31.4 Bipolar disorder, current episode depressed, severe, without psychotic features; E83.42 Hypomagnesemia; B18.2 Chronic viral hepatitis C; E86.0 Dehydration; D50.9 Iron deficiency anemia, unspecified; F12.90 Cannabis use, unspecified, uncomplicated; F14.10 Cocaine abuse, uncomplicated; F11.23 Opioid dependence with withdrawal; Y90.9 Presence of alcohol in blood, level not specified; F17.210 Nicotine dependence, cigarettes, uncomplicated; Z81.3 Family history of other psychoactive substance abuse and dependence; Z82.49 Family history of ischemic heart disease and other diseases of the circulatory system; Z59.1 Inadequate housing; F41.1 Generalized anxiety disorder; Z79.899 Other long term (current) drug therapy; Z81.8 Family history of other mental and behavioral disorders; Z91.89 Other specified personal risk factors, not elsewhere classified; G47.00 Insomnia, unspecified; J20.9 Acute bronchitis, unspecified
CPT/HCPCS: 36415; 70030-TC; 71010; 80307; 80349; 80361; 83605; 83735; 85025; 86403; 86580; 86592; 86705; 86803; 87040; 87070; 87340; 87400; 87806; 93005; G0480; J2543; J3370; J7030; J7060; Q0162